=== PATIENT | female | born 1970 | race Caucasian/White ===

== ENCOUNTER 2017-06-23 08:48 | Emergency (ER) | payer OTHER ==
[~2017-06-23 08:48] MED LIST: ALPR0.5T3 PO; CYCL5TAB PO; GABA300C10 PO; METH500T7 PO
[2017-06-23 09:38] LABS: BLOOD UREA NITROGEN 13 mg/dL (7-18)
[2017-06-23 10:09] VITALS: BP 114/84
== END 2017-06-23 10:14 | disposition home or self-care (01) ==
LOC: ED 10:08
DX: I49.3 Ventricular premature depolarization (principal)
CPT/HCPCS: 36415; 80048; 82040; 93005; 99285

== ENCOUNTER 2017-12-24 18:12 | Emergency (ER) | payer OTHER ==
[~2017-12-24] VITALS: Ht 175.3 cm; Wt 68.0 kg
[2017-12-24 18:18] VITALS: BP 146/90
[2017-12-24] MEDS ORDERED: KETOROLAC 30 MG/1 ML ONE (19:20)
[2017-12-24] MEDS ORDERED: KETOROLAC 30 MG/1 ML IM ONE (19:30)
== END 2017-12-24 19:37 | disposition home or self-care (01) ==
LOC: ED 19:05
DX: S29.012A Strain of muscle and tendon of back wall of thorax, initial encounter (principal); Y09 Assault by unspecified means; Y93.89 Activity, other specified; Y99.8 Other external cause status; Y92.410 Unspecified street and highway as the place of occurrence of the external cause
CPT/HCPCS: 72072; 96372; 99284; J1885

== ENCOUNTER 2018-03-22 14:22 | Emergency (ER) | payer OTHER ==
[2018-03-22 14:41] VITALS: BP 98/75
== END 2018-03-22 15:55 | disposition home or self-care (01) ==
LOC: ED 15:45
DX: L73.9 Follicular disorder, unspecified (principal); R10.31 Right lower quadrant pain
CPT/HCPCS: 99283

== ENCOUNTER 2018-04-21 09:50 | Emergency (ER) | payer OTHER ==
[~2018-04-21] VITALS: Ht 175.3 cm; Wt 68.0 kg
[2018-04-21 10:36] VITALS: BP 144/93
== END 2018-04-21 11:25 | disposition home or self-care (01) ==
LOC: ED 11:19
DX: F41.1 Generalized anxiety disorder (principal); Z76.0 Encounter for issue of repeat prescription; F17.200 Nicotine dependence, unspecified, uncomplicated
CPT/HCPCS: 99283

== ENCOUNTER 2018-06-14 16:40 | Emergency (ER) | payer OTHER ==
[~2018-06-14] VITALS: Ht 175.3 cm; Wt 64.8 kg
[2018-06-14 16:45] VITALS: BP 145/79
[2018-06-14] MEDS ORDERED: ALBUTEROL/IPRATROPIUM 2.5MG/0.5MG, 3 ML ONE (16:55)
[2018-06-14] MEDS ORDERED: KETOROLAC 30 MG/1 ML IM ONE (17:00)
[2018-06-14] MEDS ORDERED: ALBUTEROL/IPRATROPIUM 2.5MG/0.5MG, 3 ML NPPB ONE (17:00)
[2018-06-14] MEDS ORDERED: KETOROLAC 30 MG/1 ML ONE (17:19)
[2018-06-14 18:00] LABS: BASOPHILS # (AUTO) 0.25 x10^3/uL (0-0.1); BASOPHILS % (AUTO) 2 % (0-1); EOSINOPHILS % (AUTO) 1 % (1-7); LYMPHOCYTES # (AUTO) 3.99 x10^3/uL (1-3.4); LYMPHOCYTES % (AUTO) 29 % (22-44); MD NO; MEAN CORPUSCULAR HEMOGLOBIN 32.3 pg (27.0-34.8); MEAN CORPUSCULAR HGB CONC 33.8 g/dL (32.4-35.8); MEAN CORPUSCULAR VOLUME 95.7 fL (80-100); MONOCYTES # (AUTO) 1.12 x10^3/uL (0.2-0.8); MONOCYTES % (AUTO) 8 % (2-9); NEUTROPHILS # (AUTO) 8.54 x10^3/uL (1.8-6.8); NEUTROPHILS % (AUTO) 61 % (42-75); PLATELET COUNT 428 x10^3/uL (130-400); RED BLOOD COUNT 5.01 x10^6/uL (3.82-5.3); RED CELL DISTRIBUTION WIDTH 13.5 % (9.6-15.2)
[2018-06-14 18:10] LABS: ANION GAP 10 mmol/L (5-15); CALCIUM 9.1 mg/dL (8.5-10.1); CHLORIDE 105 mmol/L (98-107)
[2018-06-14 18:11] LABS: CREATININE 0.88 mg/dL (0.55-1.02)
== END 2018-06-14 18:33 | disposition home or self-care (01) ==
LOC: ED 17:15
DX: J20.9 Acute bronchitis, unspecified (principal); J06.9 Acute upper respiratory infection, unspecified; M94.0 Chondrocostal junction syndrome [Tietze]; B34.9 Viral infection, unspecified
CPT/HCPCS: 36415; 71046; 80048; 85025; 85379; 93005; 94640; 96372; 99285; J1885; J7512; J7620